=== PATIENT | female | born 1930 | race Hispanic/Latino ===

== ENCOUNTER 2017-04-15 07:54 | Day surgery (SDC) | payer OTHER ==
[~2017-04-15] VITALS: Ht 182.9 cm; Wt 116.1 kg
[2017-04-15 08:19] VITALS: BP 167/88
[2017-04-15] MEDS ORDERED: LIDOCAINE HCL 1% 20 ML VIAL ONE (10:26)
[2017-04-15 11:45] VITALS: BP 133/78
[2017-04-15 12:00] VITALS: BP 120/78
[2017-04-15 12:15] VITALS: BP 122/75
== END 2017-04-15 12:25 ==
LOC: DAH 07:54
PROVIDERS: ATTEND Internal Medicine Pulmonary Disease
DX: T82.49XA Other complication of vascular dialysis catheter, initial encounter (principal); M62.82 Rhabdomyolysis; I21.3 ST elevation (STEMI) myocardial infarction of unspecified site; I25.5 Ischemic cardiomyopathy; I27.20 Pulmonary hypertension, unspecified; I25.10 Atherosclerotic heart disease of native coronary artery without angina pectoris; E66.01 Morbid (severe) obesity due to excess calories; F03.90 Unspecified dementia, unspecified severity, without behavioral disturbance, psychotic disturbance, mood disturbance, and anxiety; I48.91 Unspecified atrial fibrillation; E78.5 Hyperlipidemia, unspecified; Z79.899 Other long term (current) drug therapy; I12.0 Hypertensive chronic kidney disease with stage 5 chronic kidney disease or end stage renal disease; E11.22 Type 2 diabetes mellitus with diabetic chronic kidney disease; N18.6 End stage renal disease; Z99.2 Dependence on renal dialysis
CPT/HCPCS: 36558; 36589; 77001; 82948 ×2; A4606; C1750; C1894; J1644 ×2

== ENCOUNTER 2017-10-24 17:56 | Inpatient (IN) | payer MEDICARE ==
[~2017-10-24] VITALS: Ht 177.8 cm; Wt 83.6 kg
[2017-10-24 18:50] VITALS: BP 130/71
[2017-10-24 19:06] LABS: HEMATOCRIT 27.7 % (36-48); MEAN CORPUSCULAR HEMOGLOBIN 32.4 pg (27.0-33.0); MEAN CORPUSCULAR HGB CONC 33.6 g/dL (32.0-36.0); MEAN CORPUSCULAR VOLUME 96.4 fL (79-99); PLATELET COUNT (AUTO) 286 K/uL (130-400); RED BLOOD CELL COUNT(AUTO) 2.87 MIL/uL (4.00-5.50); RED CELL DISTRIBUTION WIDTH 15.1 % (11.0-15.5); WHITE BLOOD COUNT (AUTO) 15.1 K/uL (4.8-10.8)
[2017-10-24 19:24] LABS: BILIRUBIN,TOTAL 0.6 mg/dL (0.2-1.0); CREATININE 2.2 mg/dL (0.5-1.5); MAGNESIUM 1.9 mg/dL (1.80-2.40); POTASSIUM 3.6 mmol/L (3.5-5.1); TOTAL PROTEIN, SERUM 6.5 g/dL (6.0-8.3)
[2017-10-24 19:27] LABS: INR 1.02 (0.85-1.15); PARTIAL THROMBOPLASTIN TIME 29.4 SEC (26.3-35.5); PROTHROMBIN TIME 10.7 SEC (9.6-11.6)
[2017-10-24 20:00] VITALS: BP 110/50
[2017-10-24] MEDS ORDERED: COMPOUND IV REFRIGERATED 1 EACH IVSOLN MISC PRN (20:15)
[2017-10-24] MEDS ORDERED: MORPHINE SULFATE 2 MG/ML 1ML SYG IVP PRN (20:15)
[2017-10-24] MEDS ORDERED: VANCOMYCIN 1.5 GM in SODIUM CHLORIDE 0.9% 250 ML IV ONE (20:15)
[2017-10-24] MEDS ORDERED: ACETAMINOPHEN 325 MG TAB PO PRN (20:15)
[2017-10-24] MEDS ORDERED: PHARMACY COMMUNICATION MISC SCH (20:45)
[2017-10-24] MEDS: MEROPENEM 1 GM VIAL IVP SCH (22:27)
[2017-10-24] MEDS: HEPARIN SODIUM 5000UNIT/ML 1ML VIAL SQ SCH (22:37)
[2017-10-25] VITALS: BP 114/52
[2017-10-25 04:00] VITALS: BP 110/66
[2017-10-25 04:54] LABS: HEMATOCRIT 24.7 % (36-48); MEAN CORPUSCULAR HEMOGLOBIN 33.1 pg (27.0-33.0); MEAN CORPUSCULAR HGB CONC 34.3 g/dL (32.0-36.0); MEAN CORPUSCULAR VOLUME 96.6 fL (79-99); PLATELET COUNT (AUTO) 290 K/uL (130-400); RED BLOOD CELL COUNT(AUTO) 2.55 MIL/uL (4.00-5.50); RED CELL DISTRIBUTION WIDTH 15.2 % (11.0-15.5); WHITE BLOOD COUNT (AUTO) 10.6 K/uL (4.8-10.8)
[2017-10-25 05:10] LABS: CREATININE 2.1 mg/dL (0.5-1.5); POTASSIUM 3.3 mmol/L (3.5-5.1)
[2017-10-25 07:45] VITALS: BP 104/53
[2017-10-25] MEDS ORDERED: SODIUM CHLORIDE 0.9% 1000ML 1,000 ML IV PRN (08:15)
[2017-10-25] MEDS ORDERED: HEPARIN SODIUM 5000UNIT/ML 1ML VIAL IJ PRN (08:15)
[2017-10-25] MEDS ORDERED: 0.9% SODIUM CHLORIDE 250 ML IV BAG IV PRN (08:15)
[2017-10-25] MEDS ORDERED: ALBUMIN (HUMAN) 25% 100 ML IV PRN (08:15)
[2017-10-25] MEDS ORDERED: VANCOMYCIN 1.25 GM in SODIUM CHLORIDE 0.9% 250 ML IV SCH (08:15)
[2017-10-25] MEDS ORDERED: MEGE40L PO (08:18)
[2017-10-25] MEDS ORDERED: TRAM50TA4 PO (08:18)
[2017-10-25] MEDS ORDERED: NITR0.4T SL (08:18)
[2017-10-25] MEDS ORDERED: POTA10CA44 PO (08:18)
[2017-10-25] MEDS ORDERED: IPRNEB IH (08:18)
[2017-10-25] MEDS ORDERED: TRAM1TAB PO (08:20)
[2017-10-25] MEDS ORDERED: AMIO200T5 PO (08:20)
[2017-10-25] MEDS ORDERED: ACET-2247 PO (08:20)
[2017-10-25] MEDS ORDERED: LACT10SO9 PO (08:25)
[2017-10-25] MEDS ORDERED: SENN-178 PO (08:25)
[2017-10-25] MEDS ORDERED: ATOR10 PO (08:25)
[2017-10-25] MEDS ORDERED: ASPI-555 PO (08:25)
[2017-10-25] MEDS ORDERED: DIPH1TAB PO (08:25)
[2017-10-25] MEDS ORDERED: FOLI0.8T2 PO (08:25)
[2017-10-25] MEDS ORDERED: INSU100V3 SQ (08:29)
[2017-10-25] MEDS ORDERED: GLUC1KIT6 IM (08:29)
[2017-10-25 12:00] VITALS: BP 130/60
[2017-10-25] MEDS ORDERED: LACTULOSE 20 GM/30 ML UDCUP PO PRN (12:15)
[2017-10-25] MEDS ORDERED: GLUCAGON 1MG KIT 1 MG ML IM SCH (12:15)
[2017-10-25] MEDS ORDERED: NITROGLYCERIN 0.4 MG SL TAB SL PRN (12:15)
[2017-10-25] MEDS ORDERED: ACETAMINOPHEN 325 MG TAB PO PRN (12:15)
[2017-10-25] MEDS ORDERED: IPRATROPIUM 0.5 MG/2.5 ML INH IH PRN (12:45)
[2017-10-25] MEDS ORDERED: AMIODARONE HCL 200 MG TABLET PO ONE (14:00)
[2017-10-25] MEDS ORDERED: ASPIRIN 81MG TAB.CHEW PO ONE (14:00)
[2017-10-25] MEDS ORDERED: FOLIC ACID/VITAMIN B COMP W-C 1 MG CAPSULE PO ONE (14:00)
[2017-10-25 16:00] VITALS: BP 132/60
[2017-10-25] MEDS ORDERED: PHARMACY COMMUNICATION MISC SCH (16:00)
[2017-10-25] MEDS ORDERED: ALTEPLASE 2 MG/2 ML IVCATH ONE ×2 (17:00)
[2017-10-25] MEDS ORDERED: VANCOMYCIN 750MG + NS 250 ML IV SCH ×2 (18:00)
[2017-10-25] MEDS: MEROPENEM 1 GM VIAL IVP SCH (21:08)
[2017-10-25] MEDS: BENZONATATE 100 MG CAPSULE PO SCH (21:09)
[2017-10-25] MEDS: ATORVASTATIN CALCIUM 10 MG TABLET PO SCH (21:09)
[2017-10-25 21:15] VITALS: BP 109/60
[2017-10-25] MEDS: HEPARIN SODIUM 5000UNIT/ML 1ML VIAL SQ SCH (21:16)
[2017-10-26 00:26] VITALS: BP 107/56
[2017-10-26 04:00] VITALS: BP 131/57
[2017-10-26 05:23] LABS: HEMATOCRIT 26.4 % (36-48); MEAN CORPUSCULAR HEMOGLOBIN 32.7 pg (27.0-33.0); MEAN CORPUSCULAR HGB CONC 34.1 g/dL (32.0-36.0); MEAN CORPUSCULAR VOLUME 95.9 fL (79-99); PLATELET COUNT (AUTO) 279 K/uL (130-400); RED BLOOD CELL COUNT(AUTO) 2.75 MIL/uL (4.00-5.50); RED CELL DISTRIBUTION WIDTH 15.1 % (11.0-15.5); WHITE BLOOD COUNT (AUTO) 9.4 K/uL (4.8-10.8)
[2017-10-26 05:42] LABS: BAND NEUTROPHILS % (MANUAL) 2 % (0-2); BASOPHILS % (MANUAL) 1 % (0-2); EOSINOPHILS % (MANUAL) 3 % (1-6); LYMPHOCYTES % (MANUAL) 16 % (22-44); MONOCYTES % (MANUAL) 3 % (2-9); SEGMENTED NEUTROPHILS % 75 % (40-70)
[2017-10-26 05:43] LABS: ALBUMIN 1.8 g/dL (3.5-5.0); BILIRUBIN,TOTAL 0.5 mg/dL (0.2-1.0); CREATININE 1.8 mg/dL (0.5-1.5); MAGNESIUM 1.8 mg/dL (1.80-2.40); MAN.DIFF COMMENT-IMPRESSION MANUAL DIFFERENTIAL; PHOSPHORUS 2.6 mg/dL (2.5-4.9); PLATELET MORPHOLOGY COMMENT ADEQUATE; POTASSIUM 3.7 mmol/L (3.5-5.1); URIC ACID 3.9 mg/dL (2.6-7.2)
[2017-10-26] MEDS: DOCUSATE SODIUM PO SCH ×2 (09:00→20:54)
[2017-10-26] MEDS: SENNOSIDES PO SCH ×2 (09:00→20:54)
[2017-10-26] MEDS ORDERED: HEPARIN SODIUM 5000UNIT/ML 1ML VIAL IJ PRN (10:00)
[2017-10-26 11:00] VITALS: BP 150/83
[2017-10-26] MEDS: MEGESTROL 400 MG/10 ML UDCUP PO SCH (13:59)
[2017-10-26] MEDS: FOLIC ACID/VITAMIN B COMP W-C 1 MG CAPSULE PO SCH (13:59)
[2017-10-26] MEDS: ASPIRIN 81MG TAB.CHEW PO SCH (13:59)
[2017-10-26] MEDS: AMIODARONE HCL 200 MG TABLET PO SCH (13:59)
[2017-10-26] MEDS: BENZONATATE 100 MG CAPSULE PO SCH ×3 (14:00→20:53)
[2017-10-26 16:00] VITALS: BP 107/53
[2017-10-26] MEDS: EPOETIN ALFA 10,000 UNIT/ML VIAL SQ SCH (17:30)
[2017-10-26 19:20] VITALS: BP 108/50
[2017-10-26] MEDS: MEROPENEM 1 GM VIAL IVP SCH (20:53)
[2017-10-26] MEDS: ATORVASTATIN CALCIUM 10 MG TABLET PO SCH (20:53)
[2017-10-26] MEDS: HEPARIN SODIUM 5000UNIT/ML 1ML VIAL SQ SCH (20:55)
[2017-10-27] VITALS (7 sets, daily range): BP systolic 96–146; BP diastolic 49–68
[2017-10-27 05:31] LABS: HEMATOCRIT 26.5 % (36-48); MEAN CORPUSCULAR HEMOGLOBIN 33.2 pg (27.0-33.0); MEAN CORPUSCULAR HGB CONC 34.4 g/dL (32.0-36.0); MEAN CORPUSCULAR VOLUME 96.6 fL (79-99); PLATELET COUNT (AUTO) 318 K/uL (130-400); RED BLOOD CELL COUNT(AUTO) 2.74 MIL/uL (4.00-5.50); RED CELL DISTRIBUTION WIDTH 15.2 % (11.0-15.5); RETICULOCYTE % (AUTO) 2.23 % (0.42-2.23); WHITE BLOOD COUNT (AUTO) 9.6 K/uL (4.8-10.8)
[2017-10-27 05:42] LABS: CREATININE 1.7 mg/dL (0.5-1.5); POTASSIUM 3.2 mmol/L (3.5-5.1)
[2017-10-27 06:06] LABS: BAND NEUTROPHILS % (MANUAL) 3 % (0-2); EOSINOPHILS % (MANUAL) 3 % (1-6); LYMPHOCYTES % (MANUAL) 22 % (22-44); MONOCYTES % (MANUAL) 2 % (2-9); SEGMENTED NEUTROPHILS % 70 % (40-70)
[2017-10-27 06:07] LABS: MAN.DIFF COMMENT-IMPRESSION MANUAL DIFFERENTIAL; PLATELET MORPHOLOGY COMMENT ADEQUATE
[2017-10-27 06:43] LABS: % IRON SATURATION 42.8 % (22-44)
[2017-10-27] MEDS: SENNOSIDES PO SCH ×2 (09:00→20:35)
[2017-10-27] MEDS: DOCUSATE SODIUM PO SCH ×2 (09:00→20:35)
[2017-10-27] MEDS: BENZONATATE 100 MG CAPSULE PO SCH ×3 (12:52→20:35)
[2017-10-27] MEDS: ASPIRIN 81MG TAB.CHEW PO SCH (12:52)
[2017-10-27] MEDS: MEGESTROL 400 MG/10 ML UDCUP PO SCH (12:52)
[2017-10-27] MEDS: AMIODARONE HCL 200 MG TABLET PO SCH (12:52)
[2017-10-27] MEDS: FOLIC ACID/VITAMIN B COMP W-C 1 MG CAPSULE PO SCH (12:52)
[2017-10-27] MEDS: EPOETIN ALFA 10,000 UNIT/ML VIAL SQ SCH (17:30)
[2017-10-27] MEDS: ZOSYN 3.375GM+NS 50ML 50 ML IV SCH (18:19)
[2017-10-27] MEDS: ATORVASTATIN CALCIUM 10 MG TABLET PO SCH (20:35)
[2017-10-27] MEDS: HEPARIN SODIUM 5000UNIT/ML 1ML VIAL SQ SCH (20:44)
[2017-10-27] MEDS ORDERED: EPOETIN ALFA 10,000 UNIT/ML VIAL SQ SCH (21:00)
[2017-10-28 03:00] VITALS: BP 118/54
[2017-10-28] MEDS: ZOSYN 3.375GM+NS 50ML 50 ML IV SCH ×2 (03:55→14:35)
[2017-10-28 05:09] LABS: HEMATOCRIT 27.4 % (36-48); MEAN CORPUSCULAR HEMOGLOBIN 32.8 pg (27.0-33.0); MEAN CORPUSCULAR HGB CONC 34.5 g/dL (32.0-36.0); MEAN CORPUSCULAR VOLUME 95.3 fL (79-99); PLATELET COUNT (AUTO) 272 K/uL (130-400); RED BLOOD CELL COUNT(AUTO) 2.87 MIL/uL (4.00-5.50); RED CELL DISTRIBUTION WIDTH 15.4 % (11.0-15.5); WHITE BLOOD COUNT (AUTO) 7.9 K/uL (4.8-10.8)
[2017-10-28 05:36] LABS: CREATININE 2.2 mg/dL (0.5-1.5); POTASSIUM 3.3 mmol/L (3.5-5.1); VANCOMYCIN LEVEL 10.6 mcg/mL (18.0-26.0)
[2017-10-28] MEDS ORDERED: VANCOMYCIN 1.25 GM in SODIUM CHLORIDE 0.9% 250 ML IV SCH (06:34)
[2017-10-28 07:40] VITALS: BP 104/41
[2017-10-28] MEDS: SENNOSIDES PO SCH ×2 (09:00→21:00)
[2017-10-28] MEDS: DOCUSATE SODIUM PO SCH ×2 (09:00→21:00)
[2017-10-28] MEDS ORDERED: EPOETIN ALFA 10,000 UNIT/ML VIAL SQ SCH (09:00)
[2017-10-28] MEDS ORDERED: VANCOMYCIN 1GM+NS 250ML 0 ML IV ONE (09:23)
[2017-10-28 11:22] VITALS: BP 137/89
[2017-10-28] MEDS: BENZONATATE 100 MG CAPSULE PO SCH ×3 (14:33→21:23)
[2017-10-28] MEDS: MEGESTROL 400 MG/10 ML UDCUP PO SCH (14:33)
[2017-10-28] MEDS: AMIODARONE HCL 200 MG TABLET PO SCH (14:34)
[2017-10-28] MEDS: ASPIRIN 81MG TAB.CHEW PO SCH (14:34)
[2017-10-28] MEDS: FOLIC ACID/VITAMIN B COMP W-C 1 MG CAPSULE PO SCH (14:34)
[2017-10-28 15:15] VITALS: BP 116/41
[2017-10-28 19:00] VITALS: BP 102/48
[2017-10-28] MEDS: ATORVASTATIN CALCIUM 10 MG TABLET PO SCH (21:23)
[2017-10-28] MEDS: HEPARIN SODIUM 5000UNIT/ML 1ML VIAL SQ SCH (21:25)
[2017-10-28 23:00] VITALS: BP 111/44
[2017-10-29 03:00] VITALS: BP 112/49
[2017-10-29] MEDS: ZOSYN 3.375GM+NS 50ML 50 ML IV SCH ×2 (03:14→15:29)
[2017-10-29 05:41] LABS: HEMATOCRIT 27.8 % (36-48); MEAN CORPUSCULAR HEMOGLOBIN 33.4 pg (27.0-33.0); MEAN CORPUSCULAR HGB CONC 34.8 g/dL (32.0-36.0); PLATELET COUNT (AUTO) 287 K/uL (130-400); RED BLOOD CELL COUNT(AUTO) 2.89 MIL/uL (4.00-5.50); RED CELL DISTRIBUTION WIDTH 15.5 % (11.0-15.5); WHITE BLOOD COUNT (AUTO) 6.8 K/uL (4.8-10.8)
[2017-10-29 05:51] LABS: CREATININE 1.8 mg/dL (0.5-1.5); POTASSIUM 3.1 mmol/L (3.5-5.1)
[2017-10-29 07:00] VITALS: BP 123/53
[2017-10-29] MEDS: SENNOSIDES PO SCH (09:00)
[2017-10-29] MEDS: DOCUSATE SODIUM PO SCH (09:00)
[2017-10-29] MEDS: FOLIC ACID/VITAMIN B COMP W-C 1 MG CAPSULE PO SCH (09:41)
[2017-10-29] MEDS: ASPIRIN 81MG TAB.CHEW PO SCH (09:41)
[2017-10-29] MEDS: BENZONATATE 100 MG CAPSULE PO SCH ×2 (09:41→15:29)
[2017-10-29] MEDS: AMIODARONE HCL 200 MG TABLET PO SCH (09:41)
[2017-10-29] MEDS: MEGESTROL 400 MG/10 ML UDCUP PO SCH (09:41)
[2017-10-29 11:00] VITALS: BP 99/49
[2017-10-29 16:00] VITALS: BP 120/57
== END 2017-10-29 19:17 | DRG 871 ==
LOC: EDHIP 17:56 → 3BH 18:31
PROVIDERS: ADMIT Internal Medicine Infectious Disease; ATTEND Internal Medicine Infectious Disease
PROC: 5A1D70Z Performance of Urinary Filtration, Intermittent, Less than 6 Hours Per Day (ICD-10-PCS; principal; 2017-10-25)
PROC: 5A1D70Z Performance of Urinary Filtration, Intermittent, Less than 6 Hours Per Day (ICD-10-PCS; 2017-10-26)
PROC: 5A1D70Z Performance of Urinary Filtration, Intermittent, Less than 6 Hours Per Day (ICD-10-PCS; 2017-10-28)
DX: A41.9 Sepsis, unspecified organism (principal); N18.6 End stage renal disease; L89.154 Pressure ulcer of sacral region, stage 4; N39.0 Urinary tract infection, site not specified; E46 Unspecified protein-calorie malnutrition; I12.0 Hypertensive chronic kidney disease with stage 5 chronic kidney disease or end stage renal disease; M86.9 Osteomyelitis, unspecified; E11.22 Type 2 diabetes mellitus with diabetic chronic kidney disease; D64.9 Anemia, unspecified; E11.21 Type 2 diabetes mellitus with diabetic nephropathy; E11.51 Type 2 diabetes mellitus with diabetic peripheral angiopathy without gangrene; E11.69 Type 2 diabetes mellitus with other specified complication; F03.90 Unspecified dementia, unspecified severity, without behavioral disturbance, psychotic disturbance, mood disturbance, and anxiety; B95.2 Enterococcus as the cause of diseases classified elsewhere; B96.20 Unspecified Escherichia coli [E. coli] as the cause of diseases classified elsewhere; B96.4 Proteus (mirabilis) (morganii) as the cause of diseases classified elsewhere; Z68.26 Body mass index [BMI] 26.0-26.9, adult; Z87.01 Personal history of pneumonia (recurrent); Z99.2 Dependence on renal dialysis; Z74.01 Bed confinement status
CPT/HCPCS: 36415; 71045; 80048; 80053; 80202; 82607; 82728; 82746; 82948; 83540; 83550; 83605; 83735; 84100; 84550; 85025; 85027; 85045; 85610; 85730; 87040; 87070; 87076; 87077; 87186; 90935; 94664; A4218; J0885; J1644; J2185; J2543; J2997; J3370; J7030